=== PATIENT | female | born 1985 | race Two or more races ===

== ENCOUNTER 2021-01-11 20:56 | Emergency (ER) | payer MEDICAID ==
[~2021-01-11] VITALS: Ht 157.5 cm; Wt 93.0 kg
[2021-01-11] MEDS ORDERED: LORAZEPAM INJ 2 MG/ML VIAL ONE (21:10)
[2021-01-11] MEDS ORDERED: HALOPERIDOL LACTATE INJ 5 MG/ML VIAL ONE (21:10)
[2021-01-11] MEDS ORDERED: diphenhydrAMINE HCL 50 MG/ML VIAL ONE (21:10)
--- NOTE | 2021-01-11 21:15 | NUR ---
air transport professionals at bedside
--- NOTE | 2021-01-11 21:26 | NUR ---
COVID SWAB COLLECTED AND SENT TO LAB
[2021-01-11] MEDS ORDERED: HALOPERIDOL LACTATE INJ 5 MG/ML VIAL IM ONE (21:30)
[2021-01-11] MEDS ORDERED: diphenhydrAMINE HCL 50 MG/ML VIAL IM ONE (21:30)
[2021-01-11] MEDS ORDERED: LORAZEPAM INJ 2 MG/ML VIAL IVP ONE (21:30)
[2021-01-11 21:53] LABS: BASOPHILS # (AUTO) 0.2 K/uL (0.0-0.2); BASOPHILS % (AUTO) 1.9 % (0.0-2.0); EOSINOPHILS % (AUTO) 0.3 % (0.0-6.0); HEMATOCRIT 36 % (33-45); HEMOGLOBIN 11.7 g/dL (11.5-14.8); LYMPHOCYTES # (AUTO) 1.7 K/uL (0.8-4.8); MEAN CORPUSCULAR HGB CONC 33 g/dl (31.0-36.0); MEAN CORPUSCULAR VOLUME 81 fL (82-100); MONOCYTES # (AUTO) 0.5 K/uL (0.1-1.30); MONOCYTES % (AUTO) 5.1 % (2.0-12.0); NEUTROPHILS # (AUTO) 7.9 K/uL (1.8-8.9); NEUTROPHILS % (AUTO) 76.7 % (43.0-81.0); PLATELET COUNT (AUTO) 273 K/uL (150-450); RED BLOOD CELL COUNT(AUTO) 4.39 MIL/uL (4.0-5.2); WHITE BLOOD COUNT (AUTO) 10.4 K/uL (4.3-11.0)
[2021-01-11 22:03] LABS: CALCIUM, SERUM 9.1 mg/dL (8.5-10.1); CARBON DIOXIDE 24 mmol/L (21-32); CHLORIDE 104 mmol/L (98-107); CREATININE 0.9 mg/dL (0.6-1.3); GLUCOSE 173 mg/dL (74-106); POTASSIUM 3.2 mmol/L (3.5-5.1); SODIUM SERUM 142 mmol/L (136-145); UREA NITROGEN, BLOOD 23 mg/dL (7-18)
[2021-01-11 22:09] LABS: ALANINE AMINOTRANSFERASE 21 U/L (12-78); ALBUMIN 4.1 g/dL (3.4-5.0); ALKALINE PHOSPHATASE 58 U/L (46-116); ASPARTATE AMINOTRANSFERASE 14 U/L (15-37); BILIRUBIN,DIRECT 0.1 mg/dL (0.0-0.2); BILIRUBIN,TOTAL 0.4 mg/dL (0.2-1.0); TOTAL PROTEIN, SERUM 7.8 g/dL (6.4-8.2)
[2021-01-11 22:10] LABS: ACETAMINOPHEN < 0 ug/ml (10-30); ALCOHOL, BLOOD < 0 mg/dL (0-0)
--- NOTE | 2021-01-12 00:05 | NUR ---
URINE COLLECTED AND SENT TO LAB
[2021-01-12 00:54] LABS: BILIRUBIN,URINE SMALL (NEGATIVE); COLOR,URINE YELLOW (YELLOW); LEUKOCYTE ESTERASE ,URINE NEGATIVE (NEGATIVE); NITRITE, URINE NEGATIVE (NEGATIVE); PROTEIN,URINE NEGATIVE (NEGATIVE); UGLUCOSE NEGATIVE (NEGATIVE); UROBILINOGEN,URINE 0.2 EU/dL (0.2)
[2021-01-12 01:21] LABS: BACTERIA,URINE None seen /HPF (None Seen); RBC,URINE 0-2 /HPF (0-2); SQUAMOUS EPITHELIAL CELL,UR Many /HPF (None Seen); WBC,URINE 0-2 /HPF (0-3)
--- NOTE | 2021-01-12 02:18 | NUR ---
pt attached to monitor and pox. vss
--- NOTE | 2021-01-12 04:45 | NUR ---
Patient is resting comfortably in bed with eyes closed. Easily aroused. VSS
--- NOTE | 2021-01-12 12:18 | NUR ---
SS Consult: SS Consult requested. The pt. is a 35-year old female who was [employer] and [employer] to ED after pt. violated restraining order by boyfriend. Per EMR, the pt.'s boyfriend reported that pt. is having a manic episode. Per EMR, the pt. was nonsensical, with pressured speech. SW met with pt. bedside and pt. is A&O X3 and makes good eye contact. The pt.'s appears well-groomed with labile mood & pressured speech and tangential thought process. Pt. denies SI/HI and denies hallucinations. FLACA explored pt.'s living situation. Pt. states she resides in 2 places: with boyfriend, Jose at [[address] [place] [address]] and also pays rent to live with her mother, Sayra [phone] at [[address] [facility] [address]]. FLACA explored pt.'s mental health Hx. Pt. states she has been diagnosed with Schizoaffective Disorder in the past and has been prescribed with Seroquel and Abilify but is non-compliant with meds because "I don't like the way it makes me feel". FLACA explored pt.'s drug & ETOH use. Patient denies drug use and alcohol use other than "occasional weed". Pt. states she is ambulatory. FLACA explored pt.'s support system. Pt. states her is mother, Sayra Velasquez [phone] is her support system and is who takes care of her daughter. Pt. stated she receives SSDI. Pt. denies SI/HI and denies hallucinations. FLACA called the pt.'s mother, Sayra Velasquez [phone] and brother Martín [phone] to provide transportation for pt. with no success. D/C PLAN: Patient would like to be discharged to home w/ her mother, Sayra [phone] at [[address] [facility] [address]]. Pt. will be provided with a buspass. Pt. states she is very familiar with bus routes and it is her usual mode of transportation. FLACA consulted with [employer] yard supervisor, Sadiq Hale to ensure a safe & proper D/C planning. FLACA discussed D/C plan with Dr. Pardo who is agreeable to plan. FLACA encouraged pt. to seek mental health services. SW provided mental health resources for counseling, psychiatry & psychology services and pt. accepted them: Counseling--Outpatient [facility] [address], [place] [address] (Specializes in in-depth psychotherapy for emotional distress: anxiety, depression, interpersonal conflicts, life transitions, childhood abuse) [facility] [address] [place] [address] (Assist with solving problem marital difficulties, separation & divorce, aging parents, & grief, chronic & terminal illness) [facility] [address] [place] [address] (Deal with loss & grief, anxiety, marital difficulties) Homebound/Mental Health Services [address], [address] [place] [address] (Provide in-home mental services to people who are incapable of leaving their homes) [facility] [address] [place] [address] [facility] [address] [facility] [address] Mental Health Services [facility] [address] [place] [address] Services: Outpatient therapy for children, teens, young adults, adults, older adults, and families; Psychiatric services, medication support Psychiatric Outpatient Services [facility] Partial Hospitalization and Intensive Outpatient Program (Managed Care and [place] Only)[address] [facility]. [facility] [phone] [facility] Partial Hospitalization and Outpatient [id number] [place], [place] [phone] [facility] Partial Hospitalization and Outpatient [id number] [facility] [place], [place] [phone] JOE FOREMAN [facility] [address] [place] [phone] [facility] [place] Partial Hospitalization and Outpatient [id number] THONG [phone] Crisis and Hotline Telephone Numbers 24-Hour service unless stated [place] Crisis Hotlines: [facility] Mental Health/Crisis Line........934.906.5569 Suicide Prevention Center (24 Hours).......[phone] Suicide Prevention Crisis Center.......[phone] (24 Hours) Assaults Against Women Hotline.........726.995.9267 (24 Hours -- [facility]) Women and Children Crisis Nursing Home...........[phone] (24 Hours) Child Abuse Hotline............386.261.1400 [facility] R[facility] (24 Hours)..........[phone] Alcoholics Anonymous (24 Hours)..........[phone] Cocaine Anonymous (24 Hours)............[phone] Narcotics Anonymous (24 Hours)..........[phone] [address] [facility] [address], [place] [address]
--- NOTE | 2021-01-12 13:14 | NUR ---
Patient a/ox4, rr even and unlabored, ambulatory with steady gait, denies si/hi at this time. Patient is medically cleared by MD. Patient discharged to home in stable condition. Written and verbal after care instructions given. Patient verbalizes understanding of instruction. Patient provided with a tap card for transportation.
[2021-01-12 13:15] VITALS: BP 122/81
== END 2021-01-12 13:16 | disposition home or self-care (01) ==
LOC: ER 20:56
DX: F31.2 Bipolar disorder, current episode manic severe with psychotic features (principal); F19.10 Other psychoactive substance abuse, uncomplicated; F17.200 Nicotine dependence, unspecified, uncomplicated; Z20.822 Contact with and (suspected) exposure to COVID-19
CPT/HCPCS: 36415; 80048; 80076; 80143; 80307; 80320; 81001; 84703; 85025; 87426; 96372 ×2; 96374; 99285; C9803; J1200; J1630; J2060; G0480

== ENCOUNTER 2021-04-02 09:41 | Emergency (ER) | payer MEDICAID ==
[~2021-04-02] VITALS: Ht 157.5 cm; Wt 98.4 kg
--- NOTE | 2021-04-02 09:41 | NUR ---
BIB RA FROM HOME, HEMATOMA TO RIGHT SIDE OF FOREHEAD,HEAD BUTTED BY JESSICA SOMERS WERE NOTIFIED AND A REPORT WAS MADE. PATIENT IS A&O X4. VITALS ARE WITHIN NORMAL LIMITS. WILL CONTINUE TO MONITOR.
--- NOTE | 2021-04-02 09:45 | NUR ---
IS AT BEDSIDE.
[2021-04-02] MEDS ORDERED: LIDOCAINE /MPF 1% VIAL 5 ML VIAL ONE (09:59)
[2021-04-02] MEDS ORDERED: LIDOCAINE HCL/PF 1% 30 ML VIAL TP ONE (10:00)
[2021-04-02] MEDS ORDERED: BACI/NEOM/POLY B OINT PKT 1 UDPKT PACKET TP ONE (10:00)
--- NOTE | 2021-04-02 10:15 | NUR ---
JESSICA IS AT [facility].
--- NOTE | 2021-04-02 10:30 | NUR ---
PT WAS TAKEN TO CT
[2021-04-02 11:30] VITALS: BP 151/118
--- NOTE | 2021-04-02 12:00 | NUR ---
PT PURVID. PT WAS LAST SEEN IN HER ROOM AT 1130.
--- NOTE | 2021-04-02 12:51 | NUR ---
SW attempted to meet with pt. for an interview and to provide resources. Pt. was departed when SW arrived. SW was not able to meet with pt.
== END 2021-04-02 12:15 | disposition left against medical advice (07) ==
LOC: ER 10:03
DX: S00.83XA Contusion of other part of head, initial encounter (principal); F31.9 Bipolar disorder, unspecified; F12.90 Cannabis use, unspecified, uncomplicated; Y08.89XA Assault by other specified means, initial encounter; Y93.89 Activity, other specified; Y92.89 Other specified places as the place of occurrence of the external cause; Y99.8 Other external cause status
CPT/HCPCS: 70450; 99284; J3490 ×2